=== PATIENT | female | born 1975 | race Caucasian/White ===

== ENCOUNTER 2016-08-26 23:07 | Emergency (ER) | payer SELFPAY ==
--- NOTE | ~2016-08-26 | CT71 ---
[facility] A Service [facility] RADIOLOGY TEXT RESULTS PATIENT: BARTOLO MENDIOLA LOCATION: [facility] : 79 UNIT #: [id number] AGE: [address]: Dale Aponte DO SEX: F ORDER DR: [id number] [facility] [address] [place], [place] [address] [id number] E MR#: [id number] Acc #: [id number] NAME: BARTOLO MENDIOLA : 1975 SEX: F STUDY DATE/TIME: 08/27/2016 2:06 UNIT: [facility] ROOM: STUDY DESCRIPTION: CT Head Wo Contrast Attending Physician: Dale Aponte D.O. Ordering Physician: Dale Aponte D.O. Primary Care Physician: John Gonzalez M.D. MEDICAL IMAGING REPORT This report is preliminary unless electronic signature is present EXAM CT head without contrast. INDICATIONS Headache and fever for the past [address] head. This CT exam was performed with one or more of the following radiation dose reduction techniques: automatic exposure control, adjustment of mA and/or kV according to patient size, and iterative reconstruction. COMPARISON None. FINDINGS No acute hemorrhage, abnormal mass effect, extraaxial collection or hydrocephalus. No depressed calvarial fracture. Right mastoid air cell and middle ear effusion. IMPRESSION 1. No acute intracranial findings. 2. Right mastoid air cell and middle ear effusion. Correlate for the possibility of otomastoiditis. Dictated by... Lux Peters M.D. THIS IS AN ELECTRONICALLY VERIFIED REPORT Lux Peters M.D. at 08/30/2016 7:20 AM EED/noris TD: 08/27/2016 09:22 [facility] A Service [facility] RADIOLOGY TEXT RESULTS PATIENT: BARTOLO MENDIOLA LOCATION: [facility] : 79 UNIT #: [id number] AGE: [address]: Dale Aponte DO SEX: F ORDER DR: RICHY #: [id number] MEDICAL IMAGING REPORT Page 1 of 1 COPY
--- NOTE | ~2016-08-26 | EKG ---
PATIENT: BARTOLO MENDIOLA UNIT #: [id number] Ventricular Rate: 114 BPM Atrial Rate: 114 BPM P-R Interval: 134 ms QRS Duration: 80 ms Q-T Interval: 314 ms QTC Calculation(Bezet): 432 ms P Alzada: 38 degrees Calculated R Alzada: 12 degrees Calculated T Alzada: 26 degrees Diagnosis Line: Sinus tachycardia Diagnosis Line: Otherwise normal ECG Diagnosis Line: No previous ECGs available Diagnosis Line: Confirmed by JOSE OSORIO MD ([id number]) on Diagnosis Line: 08/28/2016 1:28:21 PM INTERPRETING MD: NORMA
--- NOTE | ~2016-08-26 | CR63 ---
[facility] A Service of [facility] RADIOLOGY TEXT RESULTS PATIENT: BARTOLO MENDIOLA LOCATION: [facility] : [birth year] UNIT #: [id number] AGE: [address]: Dale Aponte DO SEX: F ORDER DR: [id number] [facility] [address] [place], [place] [address] [id number] E MR#: [id number] Acc #: [id number] NAME: BARTOLO MENDIOLA : 1975 SEX: F STUDY DATE/TIME: 08/27/2016 2:04 UNIT: [facility] ROOM: STUDY DESCRIPTION: CR Chest 2 View Attending Physician: Dale Aponte D.O. Ordering Physician: Dale Aponte D.O. Primary Care Physician: John Gonzalez M.D. MEDICAL IMAGING REPORT This report is preliminary unless electronic signature is present EXAM Two-view chest. INDICATIONS Cough for the past 2 days. PROCEDURE Frontal and lateral views of the chest. COMPARISON 11/12/13 FINDINGS Heart size within normal limits. No dense consolidation, pleural fluid or pneumothorax. IMPRESSION No active process. Dictated by... Lux Peters M.D. THIS IS AN ELECTRONICALLY VERIFIED REPORT Lux Peters M.D. at 08/30/2016 7:20 AM KALYAN/noris TD: 08/27/2016 09:24 JOB #: [id number] MEDICAL IMAGING REPORT Page 1 of 1 COPY
[2016-08-27 00:38] LABS: INFLUENZA A NEG (NEG); INFLUENZA B NEG (NEG)
[2016-08-27 02:23] LABS: BASOPHIL% 0.4 % (0-2.5); EOSINOPHIL# 0.1 X10e3 (0-0.7); EOSINOPHIL% 0.7 % (0.0-7.0); HEMATOCRIT 38.1 % (35.0-45.0); HEMOGLOBIN 12.8 gm/dL (12.0-16.0); LYMPHOCYTE# 1.5 X10e3 (1.0-3.5); LYMPHOCYTE% 15.7 % (17.0-45.0); MEAN CELL VOLUME 89.5 FL (83-96); MEAN CORPUSCULAR HGB CONC 33.6 g/dL (30-36); MEAN PLATELET VOLUME 8.2 FL (6.5-11.5); MONOCYTE# 0.8 X10e3 (0-1.0); MONOCYTE% 8.1 % (3.0-12.0); NEUTROPHIL# 7.1 X10e3 (1.5-7.1); NEUTROPHIL% 75.1 % (40-75); PLATELET COUNT 136 X10e3 (140-420); RED BLOOD COUNT 4.26 X10e (3.90-5.30); RED CELL DISTRIBUTION WIDTH 13.1 % (11.0-15.5); WHITE BLOOD COUNT 9.5 X10e3 (4.0-10.5)
[2016-08-27 02:28] LABS: DIFF IND NO
[2016-08-27 02:43] LABS: BUN/CREATININE RATIO 14.28; CALCIUM SERUM 8.7 mg/dL (8.4-10.2); CREATININE SERUM 0.7 mg/dL (0.6-1.4); GLOM FILT RATE Estimated 109.1 mL/min (>60); POTASSIUM 3.7 mmol/L (3.5-5.1)
[2016-08-27 04:01] LABS: POC - CKMB 1.6 ng/mL (0.0-7.9); POC - TROPONIN <0.05 ng/mL (<=0.05)
== END 2016-08-27 04:40 | disposition home or self-care (01) ==
LOC: CED 23:07
PROVIDERS: Emergency Medicine
DX: H66.91 Otitis media, unspecified, right ear (principal); R51 Headache; F41.8 Other specified anxiety disorders; Z91.040 Latex allergy status
CPT/HCPCS: 36415; 70450; 71020; 80048; 82553; 84484; 85025; 87651; 87804; 93005; 96361; 96365; 96375; 99284; J0696; J1885

== ENCOUNTER 2016-10-11 20:43 | Emergency (ER) | payer SELFPAY ==
[~2016-10-11] VITALS: Ht 160 cm; Wt 95.2 kg
--- NOTE | ~2016-10-11 | CT2 ---
[facility] A Service of [facility] RADIOLOGY TEXT RESULTS PATIENT: BARTOLO MENDIOLA LOCATION: [facility] : 79 UNIT #: [id number] AGE: [address]: Dale Aponte DO SEX: F ORDER DR: [id number] [facility] [address] [place], [place] [address] [id number] E MR#: [id number] Acc #: [id number] NAME: BARTOLO MENDIOLA : 1975 SEX: F STUDY DATE/TIME: 10/11/2016 22:58 UNIT: [facility] ROOM: STUDY DESCRIPTION: CT Abd and Pelv W Cont Attending Physician: Dale Aponte D.O. Ordering Physician: Dale Aponte D.O. Primary Care Physician: John Gonzalez M.D. MEDICAL IMAGING REPORT This report is preliminary unless electronic signature is present EXAM CT abdomen and pelvis with contrast INDICATION Right upper quadrant abdominal pain today. PROCEDURE Contrast-enhanced CT of the abdomen and pelvis. This CT exam was performed with one or more of the following radiation dose reduction techniques: automatic exposure control, adjustment of mA and/or kV according to patient size, and iterative reconstruction. COMPARISON None FINDINGS ABDOMEN WITH CONTRAST: Included lung bases are clear. The liver measures 22.7 cm in length. Probable hepatic steatosis. The spleen measures 17.7 cm in length. There is a rim-calcified cyst in the spleen that measures 4.9 cm. The kidneys, adrenal glands, pancreas and gallbladder are unremarkable. Bowel loops are nondilated. Appendix is normal. Small fat-containing umbilical hernia. PELVIS WITH CONTRAST: No pelvic mass or fluid. No aggressive appearing bone lesion. IMPRESSION 1. No definite acute findings. 2. Hepatomegaly and splenomegaly. Hepatic steatosis. [facility] A Service of [facility] RADIOLOGY TEXT RESULTS PATIENT: BARTOLO MENDIOLA LOCATION: [facility] : 79 UNIT #: [id number] AGE: [address]: Dale Aponte DO SEX: F ORDER DR: 3. 4.9 cm splenic cyst. 4. No radiodense gallstones or evidence for acute gallbladder inflammation by CT. Dictated by... Lux Peters M.D. THIS IS AN ELECTRONICALLY VERIFIED REPORT Lux Peters M.D. at 10/12/2016 9:53 PM Syed TD: 10/12/2016 13:27 JOB #: [id number] MEDICAL IMAGING REPORT Page 1 of 1 COPY
[2016-10-11 21:27] LABS: BASOPHIL% 0.6 % (0-2.5); DIFF IND NO; EOSINOPHIL# 0.1 X10e3 (0-0.7); HEMATOCRIT 40.1 % (35.0-45.0); HEMOGLOBIN 13.9 gm/dL (12.0-16.0); LYMPHOCYTE# 2.1 X10e3 (1.0-3.5); LYMPHOCYTE% 35.1 % (17.0-45.0); MEAN CELL VOLUME 88.6 FL (83-96); MEAN CORPUSCULAR HEMOGLOBIN 30.8 PG (28-34); MEAN CORPUSCULAR HGB CONC 34.7 g/dL (30-36); MEAN PLATELET VOLUME 8.4 FL (6.5-11.5); MONOCYTE# 0.4 X10e3 (0-1.0); MONOCYTE% 6.4 % (3.0-12.0); NEUTROPHIL# 3.3 X10e3 (1.5-7.1); NEUTROPHIL% 55.9 % (40-75); PLATELET COUNT 154 X10e3 (140-420); RED BLOOD COUNT 4.52 X10e (3.90-5.30); RED CELL DISTRIBUTION WIDTH 12.8 % (11.0-15.5); WHITE BLOOD COUNT 5.9 X10e3 (4.0-10.5)
[2016-10-11 21:39] LABS: URINE SOURCE CLEAN CATCH
[2016-10-11 21:46] LABS: URINE APPEARANCE CLEAR; URINE BILIRUBIN NEG (NEG); URINE BLOOD NEG (NEG); URINE COLOR YELLOW; URINE GLUCOSE NEG (NEG); URINE KETONE NEG (NEG); URINE LEUKOCYTE ESTERASE NEG (NEG); URINE NITRATE POS (NEG); URINE PROTEIN NEG (NEG); URINE SPECIFIC GRAVITY 1.024 (1.003-1.035); URINE UROBILINOGEN 0.2 MG/DL (NEG)
[2016-10-11 21:48] LABS: CULTURE INDICATED? YES; U HYALINE CASTS AUWI 0-2 /[LPF]; URINE BACTERIA AUWI 4+ (NEGATIVE); URINE SQUAMOUS EPITHELIAL CELL OCC /[HPF]
[2016-10-11 22:13] LABS: ALBUMIN SERUM 4.3 g/dL (3.5-5.0); BILIRUBIN,TOTAL 0.5 mg/dL (0.2-2.0); CALCIUM SERUM 8.9 mg/dL (8.4-10.2); GLOM FILT RATE Estimated 70.9 mL/min (>60); POTASSIUM 3.6 mmol/L (3.5-5.1); PROTEIN TOTAL SERUM 8.1 g/dL (6.0-8.3)
[2016-10-11 22:14] LABS: BILIRUBIN,INDIRECT 0.5 mg/dL (0.0-0.9)
[2016-10-11 23:08] LABS: POC - CKMB 4.6 ng/mL (0.0-7.9); POC - TROPONIN <0.05 ng/mL (<=0.05)
== END 2016-10-12 01:52 | disposition home or self-care (01) ==
LOC: CED 20:43
PROVIDERS: Emergency Medicine
DX: N30.90 Cystitis, unspecified without hematuria (principal); F41.9 Anxiety disorder, unspecified; Z91.040 Latex allergy status; Z98.51 Tubal ligation status
CPT/HCPCS: 36415; 74177; 80048; 80076; 81003; 82553; 83690; 84484; 84703; 85025; 87086; 87088; 87186; 96361; 96374; 96375; 99284; J0696; J1885; J2270; J2405; J2550; Q9967